=== PATIENT | male | born 1990 | race Two or more races ===

== ENCOUNTER → 2016-11-29 | Outpatient (CLI) | payer OTHER ==
[2016-11-29 08:15] LABS: CH 28.6; HDW 2.35; HGB 15.7 gm/dL (13.0-17.5); MCH 29.1 pg (25.0-35.0); MCHC 33.5 g/dL (31.0-37.0); MCV 87.1 fL (80.0-100.0); Mean Platelet Volume 6.4; RDW 13.2 % (11.5-15.5); WBC 9.3 k/uL (3.8-10.6)
[2016-11-29 10:59] LABS: ALT 37 U/L (21-72); AST 27 U/L (17-59); Alkaline Phosphatase 61 U/L (38-126); Anion Gap 11 mmol/L; Blood Urea Nitrogen 16 mg/dL (9-20); Calcium 9.4 mg/dL (8.4-10.2); Carbon Dioxide 28 mmol/L (22-30); Chloride 103 mmol/L (98-107); Cholesterol 173 mg/dL (<200); Glucose 88 mg/dL (74-99); HDL Cholesterol 38 mg/dL (40-60); Non-African American GFR(MDRD) >60 (>60 ml/min/1.73 sqM); Potassium 4.4 mmol/L (3.5-5.1); Sodium 142 mmol/L (137-145); Total Bilirubin 0.6 mg/dL (0.2-1.3); Total Protein 6.7 g/dL (6.3-8.2); Triglycerides 125 mg/dL (<150)
[2016-11-29 11:32] LABS: Estradiol 36 pg/mL (5-66)
== END | disposition home or self-care (01) ==
LOC: LABWHC1 07:40
PROVIDERS: ATTEND Family Medicine
DX: Z51.81 Encounter for therapeutic drug level monitoring (principal)
CPT/HCPCS: 36415; 80053; 80061; 82670; 84403; 85027

== ENCOUNTER 2017-11-23 14:13 | Emergency (ER) | payer OTHER ==
[2017-11-23] MEDS ORDERED: ACETAMINOPHEN TAB 500 MG TAB PO STA (15:39)
--- NOTE | 2017-11-23 16:18 | XR ---
EXAMINATION TYPE: XR chest 2V DATE OF EXAM: 11/23/2017 COMPARISON: None HISTORY: 27-year-old male with pain TECHNIQUE: PA and lateral views FINDINGS: The cardiomediastinal silhouette, aorta, and pulmonary vasculature are within normal limits. No conso lidation or pleural effusion. IMPRESSION: No focal infiltrate to suggest pneumonia.
--- NOTE | 2017-11-23 16:43 | ED ---
General Adult HPI - General Chief complaint: ENT Stated complaint: URI Time Seen by Provider: 11/23/17 15:58 Source: patient, RN notes reviewed Mode of arrival: ambulatory Limitations: no limitations - History of Present Illness Initial comments: 27-year-old male presents to the emergency department for a chief complaint of cough, congestion, and sore throat times one week. Patient denies having fevers at home but states he does not have a thermometer. Patient states he saw urgent care who told him to follow up if he did not get better. He saw them about 5 days ago. Patient has been taking [id number] cold and flu medicine which helps somewhat. Patient states his cough is dry and denies coughing up any mucus. Patient denies any shortness of breath or difficulty breathing. Patient denies smoking or asthma. Patient admits to left ear pain. Denies history of ear infections. Patient states he has congestion in for head and maxillary sinuses. Patient denies neck stiffness. Patient has no other complaints at this time including shortness of breath, chest pain, abdominal pain, nausea or vomiting, headache, or visual changes. - Related Data Previous Rx's Medication Instructions Recorded Albuterol Inhaler [Ventolin Hfa 1 - 2 puff INHALATION Q6HR PRN #1 11/23/17 Inhaler] inhaler Azithromycin [Zithromax Z-pack] 250 mg PO DIRECTED #6 tab 11/23/17 methylPREDNISolone Dose Pack 4 mg PO DIRECTED #21 package 11/23/17 [Medrol Dose Pack] Allergies Allergy/AdvReac Type Severity Reaction Status Date / Time Penicillins Allergy Anaphylaxis Verified 11/23/17 14:32 Sulfa (Sulfonamide Allergy Anaphylaxis Verified 11/23/17 14:32 Antibiotics) Review of Systems ROS Statement: Those systems with pertinent positive or pertinent negative responses have been documented in the HPI. ROS Other: All systems not noted in ROS Statement are negative. Past Medical History Past Medical History: No Reported History History of Any Multi-Drug Resistant Organisms: None Reported Past Surgical History: No Surgical Hx Reported Additional Past Surgical History / Comment(s): nasal surgery Past Psychological History: ADD/ADHD Smoking Status: Never smoker Past Alcohol Use History: None Reported Past Drug Use History: None Reported General Exam Limitations: no limitations General appearance: alert, in no apparent distress Head exam: Present: atraumatic, normocephalic, normal inspection Eye exam: Present: normal appearance. Absent: conjunctival injection ENT exam: Present: normal exam, normal oropharynx (Non-erythematous oropharynx. No Tonsillar exudates noted bilaterally. Uvula midline), mucous membranes moist, TM's normal bilaterally (Non-erythematous nonbulging tympanic membranes bilaterally), normal external ear exam, other (Patient appears to have moderate congestion. Patient has very mild tenderness over the frontal and maxillary sinuses. No redness or swelling in the face or frontal sinuses.) Neck exam: Present: normal inspection, full ROM. Absent: tenderness, meningismus, lymphadenopathy Respiratory exam: Present: wheezes (Mild wheezing noted and right lower lung and left upper lung). Absent: respiratory distress, rales, rhonchi, stridor, accessory muscle use, decreased breath sounds, prolonged expiratory Cardiovascular Exam: Present: regular rate, normal rhythm, normal heart sounds. Absent: systolic murmur, diastolic murmur, rubs, gallop, clicks Course Vital Signs 11/23/17 11/23/17 14:26 15:35 Temperature 99.7 F H Pulse Rate 107 H Respiratory 18 16 Rate Blood Pressure 132/75 O2 Sat by Pulse 99 Oximetry Medical Decision Making - Medical Decision Making 27-year-old male presents to the emergency department for a chief complaint of cough congestion and sore throat times one week. Patient describes a dry cough. Patient denies history of asthma. No shortness of breath or difficulty breathing. Patient is not a smoker. Patient was not aware of any fever at home. Patient has a low-grade temp of 99.7 in the emergency department. No Tylenol or Motrin today. On exam patient is in non-erythematous throat without tonsillar exudates. Uvula midline. There is mild wheezing noted in bilateral lungs. Strep and influenza was negative . Chest x-ray demonstrated no focal signs of pneumonia. Due to wheezing and symptoms being 1 week patient will be treated with azithromycin and steroid. He was given albuterol as well. He will take Motrin and Tylenol for fever. He will follow up with primary care provider. He will return to the emergency department if he has any worsening symptoms or shortness of breath or high fevers that cannot be reduced with Motrin or Tylenol. - Lab Data Lab Results 11/23/17 11/23/17 Range/Units 15:45 15:45 Influenza Type A RNA Not Detected (Not Detectd) Influenza Type B (PCR) Not Detected (Not Detectd) Group A Strep Rapid Negative (Negative) Disposition Clinical Impression: Upper respiratory infection Disposition: HOME SELF-CARE Condition: Good Instructions: Fever in Adults (ED), Upper Respiratory Infection (ED) Additional Instructions: Please take antibiotic and steroid as directed. Use inhaler as needed. Please take Motrin and Tylenol for fever. Please monitor for worsening symptoms and return if these occur. Follow-up with primary care in 1-2 days. Prescriptions: Albuterol Inhaler [Ventolin Hfa Inhaler] 1 - 2 puff INHALATION Q6HR PRN #1 inhaler PRN Reason: Shortness Of Breath Azithromycin [Zithromax Z-pack] 250 mg PO DIRECTED #6 tab methylPREDNISolone Dose Pack [Medrol Dose Pack] 4 mg PO DIRECTED #21 package Is patient prescribed a controlled substance at d/c from ED?: No Referrals: Bharat Huerta MD [STAFF PHYSICIAN] - 1-2 days Time of Disposition: 16:46
[2017-11-23 18:25] VITALS: BP 124/87; PULSE 87; RESP 18; TEMP 98
== END 2017-11-23 18:25 | disposition home or self-care (01) ==
LOC: EC 14:13
DX: J06.9 Acute upper respiratory infection, unspecified (principal); R06.2 Wheezing; Z88.0 Allergy status to penicillin; Z88.2 Allergy status to sulfonamides
CPT/HCPCS: 71046; 87081; 87430; 87502; 99283

== ENCOUNTER → 2018-07-23 | Outpatient (CLI) | payer OTHER | LOC: LABWHC1 14:33 | PROVIDERS: ATTEND Family Medicine | DX: Z53.9 Procedure and treatment not carried out, unspecified reason (principal) ==

== ENCOUNTER 2018-08-27 00:29 | Emergency (ER) | payer OTHER ==
[2018-08-27 00:36] VITALS: BP 146/73; PULSE 88; RESP 18; TEMP 98.7
[2018-08-27] MEDS ORDERED: DIPH,PERTUS(ACELL)TETVAC-LF 0.5 ML VIAL IM ONE (00:40)
[2018-08-27] MEDS ORDERED: TOPICAL SKIN ADHESIVE 1 EACH AMP TOPICAL ONE (00:45)
--- NOTE | 2018-08-27 01:04 | ED ---
Wound/Laceration HPI - General Source: patient Mode of arrival: ambulatory Limitations: no limitations <Yohana Dickson - Last Filed: 08/27/18 01:13> <Lorna Perez - Last Filed: 08/27/18 02:02> - General Chief Complaint: Wound/Laceration Stated Complaint: Finger Laceration Time Seen by Provider: 08/27/18 00:39 - History of Present Illness Initial Comments: 28-year-old male patient presents to the emergency department today for evaluation of laceration to the tip of the left fifth digit. Patient states he is unsure when his last tetanus vaccine was administered so he presented here for further evaluation. Patient states he believes he cut it on a sharp pain and approximately 2 hours ago. Patient states he was able to get the bleeding under control. Denies any other injuries. Denies any numbness or tingling to the finger. Denies any difficulty with range of motion. Patient denies any headache, neck pain, back pain, chest pain, shortness of breath, dizziness, weakness, abdominal pain, nausea, vomiting, or difficulties with bowel movements or urination. (Yohana Dickson) - Related Data Previous Rx's Medication Instructions Recorded Albuterol Inhaler [Ventolin Hfa 1 - 2 puff INHALATION Q6HR PRN #1 11/23/17 Inhaler] inhaler Azithromycin [Zithromax Z-pack] 250 mg PO DIRECTED #6 tab 11/23/17 methylPREDNISolone Dose Pack 4 mg PO DIRECTED #21 package 11/23/17 [Medrol Dose Pack] Allergies Allergy/AdvReac Type Severity Reaction Status Date / Time Penicillins Allergy Anaphylaxis Verified 08/27/18 00:36 Sulfa (Sulfonamide Allergy Anaphylaxis Verified 08/27/18 00:36 Antibiotics) Review of Systems ROS Other: All systems not noted in ROS Statement are negative. <Yohana Dickson - Last Filed: 08/27/18 01:13> ROS Other: All systems not noted in ROS Statement are negative. <Lorna Perez - Last Filed: 08/27/18 02:02> ROS Statement: Those systems with pertinent positive or pertinent negative responses have been documented in the HPI. Past Medical History Past Medical History: No Reported History History of Any Multi-Drug Resistant Organisms: None Reported Past Surgical History: No Surgical Hx Reported Additional Past Surgical History / Comment(s): nasal surgery, wisdom teeth removed, double mastectomy Past Psychological History: ADD/ADHD, Anxiety, Depression Smoking Status: Never smoker Past Alcohol Use History: Rare Past Drug Use History: Marijuana <Yohana Dickson - Last Filed: 08/27/18 01:13> General Exam Limitations: no limitations General appearance: alert, in no apparent distress, other (Physical well- developed, well-nourished adult male patient in no acute distress. Vital signs upon presentation are temperature 98.7F, pulse 88, respirations 18, blood pressure 146/73, pulse ox 97% on room air.) Respiratory exam: Present: normal lung sounds bilaterally. Absent: respiratory distress, wheezes, rales, rhonchi, stridor Cardiovascular Exam: Present: regular rate, normal rhythm, normal heart sounds. Absent: systolic murmur, diastolic murmur, rubs, gallop, clicks Extremities exam: Present: full ROM, normal capillary refill, other (1 cm flap laceration noted to the distal tip of the left fifth digit. No current bleeding. Skin is otherwise pink, warm, and dry. Cap refills less than 3 seconds. Radial pulses 2+ and equal bilaterally.). Absent: normal inspection, tenderness, pedal edema, joint swelling, calf tenderness Neurological exam: Present: alert, oriented X3, CN II-XII intact Psychiatric exam: Present: normal affect, normal mood Skin exam: Present: warm, dry, intact, normal color. Absent: rash <Yohana Dickson M - Last Filed: 08/27/18 01:13> Course Vital Signs 08/27/18 00:32 Temperature 98.7 F Pulse Rate 88 Respiratory 18 Rate Blood Pressure 146/73 O2 Sat by Pulse 97 Oximetry Procedures - Laceration Laceration #1 Indication: laceration Site: hand (Left fifth finger) Size (cm): 1 Description: flap Depth: simple, single layer Type of Sutures: other (exofin) Patient Tolerated Procedure: well, no complications <Yohana Dickson M - Last Filed: 08/27/18 01:13> Medical Decision Making <Yohana Dickson M - Last Filed: 08/27/18 01:13> <Lorna Perez - Last Filed: 08/27/18 02:02> - Medical Decision Making 28-year-old male patient presented to the emergency department today for evaluation of laceration to the left fifth digit. Physical examination did reveal a 1 cm flap-like laceration to the finger. No current bleeding. Did repair her laceration with exofin skin adhesive. Patient tolerated this well. He was educated regarding signs or symptoms of infection. He is instructed to follow-up with his primary care physician for recheck in 1-2 days. Return parameters discussed in detail. He verbalizes understanding and agrees this plan. (Yohana Dickson) I was available for consultation in the emergency department. The history and physical exam were done by the Midlevel Provider. Medical decision making was done by the Midlevel Provider. The Midlevel Provider did not contact me for this patient's care. I was not directly involved in this patient's care. (Lorna Perez) Disposition Is patient prescribed a controlled substance at d/c from ED?: No Time of Disposition: 01:04 <Yohana Dickson - Last Filed: 08/27/18 01:13> <Lorna Perez - Last Filed: 08/27/18 02:02> Clinical Impression: Finger laceration Disposition: HOME SELF-CARE Condition: Good Instructions (If sedation given, give patient instructions): Laceration (ED), Skin Adhesive Care (ED) Additional Instructions: Keep area clean and dry. Do not pick or pull at glue. Monitor for signs of infection including, but not limited to redness, swelling, drainage of pus, fever, or chills. Follow-up with your primary care physician for recheck in 1-2 days. Return to the emergency department immediately for any new, worsening, or concerning symptoms. Referrals: Mary Vásquez MD [Primary Care Provider] - 1-2 days
== END 2018-08-27 01:11 | disposition home or self-care (01) ==
LOC: EC 00:29
DX: S61.217A Laceration without foreign body of left little finger without damage to nail, initial encounter (principal); Z79.899 Other long term (current) drug therapy; Z88.0 Allergy status to penicillin; Z88.2 Allergy status to sulfonamides; Z23 Encounter for immunization; W26.9XXA Contact with unspecified sharp object(s), initial encounter
CPT/HCPCS: 12001; 90471; 90715; 99282

== ENCOUNTER 2018-09-30 21:59 | Emergency (ER) | payer OTHER ==
[2018-09-30 22:03] VITALS: BP 139/78; PULSE 106; RESP 18; TEMP 98.6
[2018-09-30] MEDS ORDERED: LIDOCAINE 1% INJ 10MG/ML (20 ML MDV) SQ ONE (22:24)
--- NOTE | 2018-09-30 22:54 | XR ---
EXAM: XR Right Finger(s), 2 or More Views CLINICAL HISTORY: ITS.REASON XR Reason: lac TECHNIQUE: Frontal, lateral and oblique views of finger(s) of the right hand. COMPARISON: None FINDINGS: Bones/joints: No acute fracture or dislocation identified. Joint space is maintained. No bony lesion. Soft tissues: Laceration of the distal right third digit. No radiopaque foreign body identified. IMPRESSION: No displaced fracture identified. Laceration of the distal right third digit. No radiopaque foreign body identified.
--- NOTE | 2018-09-30 23:30 | ED ---
General Adult HPI - General Chief complaint: Wound/Laceration Stated complaint: Finger laceration Time Seen by Provider: 09/30/18 22:08 Source: patient, RN notes reviewed Mode of arrival: ambulatory Limitations: no limitations - History of Present Illness Initial comments: 28-year-old male presents to the emergency department for a chief complaint of left third finger laceration. Patient states he was taking up the trash when he can cut his finger. States he does not have any other injuries. States his tetanus is updated a few weeks ago. Denies any difficulty moving the finger.Patient has no other complaints at this time including shortness of breath, chest pain, abdominal pain, nausea or vomiting, headache, or visual changes. - Related Data Previous Rx's Medication Instructions Recorded Albuterol Inhaler [Ventolin Hfa 1 - 2 puff INHALATION Q6HR PRN #1 11/23/17 Inhaler] inhaler Azithromycin [Zithromax Z-pack] 250 mg PO DIRECTED #6 tab 11/23/17 methylPREDNISolone Dose Pack 4 mg PO DIRECTED #21 package 11/23/17 [Medrol Dose Pack] Allergies Allergy/AdvReac Type Severity Reaction Status Date / Time Penicillins Allergy Anaphylaxis Verified 09/30/18 22:03 Sulfa (Sulfonamide Allergy Anaphylaxis Verified 09/30/18 22:03 Antibiotics) Review of Systems ROS Statement: Those systems with pertinent positive or pertinent negative responses have been documented in the HPI. ROS Other: All systems not noted in ROS Statement are negative. Past Medical History Past Medical History: No Reported History History of Any Multi-Drug Resistant Organisms: None Reported Past Surgical History: No Surgical Hx Reported Additional Past Surgical History / Comment(s): nasal surgery, wisdom teeth removed, double mastectomy Past Psychological History: ADD/ADHD, Anxiety, Depression Smoking Status: Never smoker Past Alcohol Use History: Rare Past Drug Use History: Marijuana General Exam Limitations: no limitations General appearance: alert, in no apparent distress Head exam: Present: atraumatic Eye exam: Present: normal appearance, PERRL, EOMI. Absent: scleral icterus, conjunctival injection, periorbital swelling ENT exam: Present: normal exam, mucous membranes moist Neck exam: Present: normal inspection, full ROM. Absent: tenderness, meningismus, lymphadenopathy Respiratory exam: Present: normal lung sounds bilaterally. Absent: respiratory distress, wheezes, rales, rhonchi, stridor Cardiovascular Exam: Present: regular rate, normal rhythm, normal heart sounds. Absent: systolic murmur, diastolic murmur, rubs, gallop, clicks Extremities exam: Present: full ROM (Full range motion of the left third digit including DIP, PIP, and MCP joint), tenderness (Tenderness noted to the distal phalanx of the left third digit), normal capillary refill (Capillary refill less than 2 seconds, DP pulse 2+ in the left hand including the third digit), other (Patient is a 3 cm laceration of the distal phalanx of the left third digit. No deep structure injuries. No evidence of foreign bodies.) Neurological exam: Present: alert, oriented X3, CN II-XII intact Psychiatric exam: Present: normal affect, normal mood Course Vital Signs 09/30/18 22:00 Temperature 98.6 F Pulse Rate 106 H Respiratory 18 Rate Blood Pressure 139/78 O2 Sat by Pulse 98 Oximetry Procedures - Laceration Laceration #1 Consent Obtained: verbal consent Indication: laceration Site: hand Size (cm): 3 Description: linear, flap Depth: simple, single layer Anesthetic Used: lidocaine 1% Anesthesia Technique: local infiltration Amount (mls): 2 Pre-repair: wound explored, irrigated extensively, deep structures intact Type of Sutures: nylon Size of Sutures: 5-0 Number of Sutures: 5 Technique: simple, interrupted Patient Tolerated Procedure: well, no complications Medical Decision Making - Medical Decision Making 28-year-old male presents to the emergency department for a laceration of the left finger. Full range of motion noted. No foreign bodies evident. X-ray negative for foreign body. Wound was cleaned thoroughly with saline pressure irrigation. It was then sutured with 5 simple interrupted sutures. Discussed return precautions including those for infection. Discussed follow-up with primary care in 1-2 days. Disposition Clinical Impression: Laceration Disposition: HOME SELF-CARE Condition: Good Instructions (If sedation given, give patient instructions): Care For Your Stitches (ED), Laceration (ED) Additional Instructions: Please keep the area clean. Monitor for signs of infection such as spreading or streaking redness, drainage, fever, or pain with bending the finger and return if this occurs. Follow-up with primary care in 1-2 days for wound recheck. Return here to the emergency department in 7-10 days to have sutures removed. Is patient prescribed a controlled substance at d/c from ED?: No Referrals: Mayr Vásquez MD [Primary Care Provider] - 1-2 days Time of Disposition: 23:29
== END 2018-09-30 23:34 | disposition home or self-care (01) ==
LOC: EC 21:59
DX: S61.213A Laceration without foreign body of left middle finger without damage to nail, initial encounter (principal); Z88.0 Allergy status to penicillin; Z88.2 Allergy status to sulfonamides; W45.8XXA Other foreign body or object entering through skin, initial encounter; Y93.89 Activity, other specified
CPT/HCPCS: 73140; 99283; 12002; J2001

== ENCOUNTER 2018-12-18 15:39 | Emergency (ER) | payer OTHER ==
[2018-12-18 16:19] VITALS: BP 125/76; PULSE 106; RESP 18; TEMP 98.2
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
[2018-12-18] MEDS ORDERED: MUPIROCIN 2% OINT 22 GM TUBE TOPICAL ONE (17:00)
== END 2018-12-18 17:03 | disposition home or self-care (01) ==
LOC: EC 15:39
DX: T22.212A Burn of second degree of left forearm, initial encounter (principal); T23.232A Burn of second degree of multiple left fingers (nail), not including thumb, initial encounter; T31.0 Burns involving less than 10% of body surface; G47.30 Sleep apnea, unspecified; Z88.0 Allergy status to penicillin; Z88.2 Allergy status to sulfonamides; Z79.899 Other long term (current) drug therapy; Z91.048 Other nonmedicinal substance allergy status; Z99.89 Dependence on other enabling machines and devices; X10.2XXA Contact with fats and cooking oils, initial encounter; Y93.G3 Activity, cooking and baking; Y92.000 Kitchen of unspecified non-institutional (private) residence as the place of occurrence of the external cause
CPT/HCPCS: 16000; 99283

== ENCOUNTER 2019-02-07 13:19 | Emergency (ER) | payer OTHER ==
[2019-02-07 13:24] VITALS: RESP 18
[2019-02-07] MEDS ORDERED: diphenhydrAMINE 50 MG/ML 1 ML VIAL IVP STA (13:56)
[2019-02-07] MEDS ORDERED: SODIUM CHLORIDE 0.9% 2,000 ML IV ONE (13:56)
[2019-02-07] MEDS ORDERED: KETOROLAC 30 MG/ML 1 ML VIAL IVP STA (13:56)
[2019-02-07] MEDS ORDERED: METOCLOPRAMIDE 5 MG/ML 2 ML VIAL IVP STA (13:56)
[2019-02-07] MEDS ORDERED: ACETAMINOPHEN TAB 325 MG TAB PO STA (14:22)
--- NOTE | 2019-02-07 14:22 | ED ---
Fever HPI - General Chief Complaint: Fever Stated Complaint: Nausea sent by [place] Time Seen by Provider: 02/07/19 13:29 Source: patient, RN notes reviewed Mode of arrival: ambulatory Limitations: no limitations - History of Present Illness Initial Comments: 28-year-old male presents emergency Department chief complaint of fever, nausea. Patient states he has not felt well over the last couple days. Patient has been taking day and night cold medicines but states it has not been helping. Patient states she's had persistent nausea as sinus headache. He denies any neck pain or neck stiffness. Patient had minimal cough no recent sore throat. Patient states she's been taken Zofran with no relief. Patient states symptoms are better if he just lays still. Patient denies any close sick contacts. Patient states that he was seen at [facility] today and sent here for further workup they did an influenza test which was negative. Patient does not take any regular medications denies any dysuria hematuria no diarrhea no constipation. - Related Data Home Medications Medication Instructions Recorded Confirmed Fexofenadine HCl [Eladia Allergy] 180 mg PO DAILY 12/18/18 02/07/19 Lipase/Protease/Amylase [Creon Dr 12,000 units PO AC-TID 12/18/18 02/07/19 12,000 Units Capsule] Mometasone Furoate [Nasonex Nasal 1 - 2 spray EA NOSTRIL DAILY PRN 12/18/18 02/07/19 [place]] Montelukast [Singulair] 10 mg PO HS PRN 12/18/18 02/07/19 Testosterone Cypionate 120 mg IM MO 02/07/19 02/07/19 [Depo-Testosterone] Previous Rx's Medication Instructions Recorded Ibuprofen [Motrin] 600 mg PO Q8HR PRN #30 tab 02/07/19 Metoclopramide [Reglan] 10 mg PO TID PRN #15 tab 02/07/19 Allergies Allergy/AdvReac Type Severity Reaction Status Date / Time Penicillins Allergy Anaphylaxis Verified 02/07/19 13:30 Sulfa (Sulfonamide Allergy Anaphylaxis Verified 02/07/19 13:30 Antibiotics) Review of Systems ROS Statement: Those systems with pertinent positive or pertinent negative responses have been documented in the HPI. ROS Other: All systems not noted in ROS Statement are negative. Past Medical History Past Medical History: Sleep Apnea/CPAP/BIPAP Additional Past Medical History / Comment(s): seasonal allergies, aspergers, sleep apnea History of Any Multi-Drug Resistant Organisms: None Reported Past Surgical History: No Surgical Hx Reported Additional Past Surgical History / Comment(s): nasal surgery, wisdom teeth re moved, double mastectomy Past Psychological History: ADD/ADHD, Anxiety, Depression Smoking Status: Current some day smoker Past Alcohol Use History: Rare Past Drug Use History: Marijuana General Exam Limitations: no limitations General appearance: alert, in no apparent distress Head exam: Present: atraumatic, normocephalic, normal inspection Eye exam: Present: normal appearance, PERRL, EOMI. Absent: scleral icterus, conjunctival injection, periorbital swelling ENT exam: Present: normal exam, normal oropharynx, mucous membranes moist, TM's normal bilaterally, normal external ear exam Neck exam: Present: normal inspection, full ROM. Absent: tenderness, meningismus, lymphadenopathy Respiratory exam: Present: normal lung sounds bilaterally. Absent: respiratory distress, wheezes, rales, rhonchi, stridor Cardiovascular Exam: Present: normal rhythm, tachycardia, normal heart sounds. Absent: systolic murmur, diastolic murmur, rubs, gallop, clicks GI/Abdominal exam: Present: soft, normal bowel sounds. Absent: distended, tenderness, guarding, rebound, rigid Neurological exam: Present: alert, oriented X3, CN II-XII intact Skin exam: Present: warm, dry, intact, normal color. Absent: rash Course Vital Signs 02/07/19 02/07/19 13:22 15:06 Temperature 102.0 F H 101.8 F H Pulse Rate 101 H 95 Respiratory 18 18 Rate Blood Pressure 122/83 121/77 O2 Sat by Pulse 100 97 Oximetry Medical Decision Making - Medical Decision Making 28-year-old male presented from for fever, nausea. Patient other specific complaints he has no neck pain no nuchal rigidity. Patient has no abdominal pain. Labs reviewed which shows evidence of leukopenia, there was a period. This most likely is viral nature. We discussed that he has to strict fever control Tylenol and Motrin. Patient feels improved after Toradol, Reglan Benadryl. - Lab Data Result diagrams: 02/07/19 14:49 02/07/19 14:49 Lab Results 09/07/19 09/07/19 09/07/19 Range/Units 14:49 14:49 14:49 WBC 2.7 L (3.8-10.6) k/uL RBC 5.73 (4.30-5.90) m/uL Hgb 16.5 (13.0-17.5) gm/dL Hct 49.0 (39.0-53.0) % MCV 85.5 (80.0-100.0) fL MCH 28.8 (25.0-35.0) pg MCHC 33.7 (31.0-37.0) g/dL RDW 16.5 H (11.5-15.5) % Plt Count 104 L (150-450) k/uL Neutrophils % (Manual) 60 % Band Neutrophils % 3 % Lymphocytes % (Manual) 27 % Monocytes % (Manual) 9 % Eosinophils % (Manual) 1 % Neutrophils # (Manual) 1.70 (1.3-7.7) k/uL Lymphocytes # (Manual) 0.73 L (1.0-4.8) k/uL Monocytes # (Manual) 0.24 (0-1.0) k/uL Eosinophils # (Manual) 0.03 (0-0.7) k/uL Nucleated RBCs 0 (0-0) /100 WBC Manual Slide Review Performed Anisocytosis Slight Sodium 138 (137-145) mmol/L Potassium 4.4 (3.5-5.1) mmol/L Chloride 100 (98-107) mmol/L Carbon Dioxide 28 (22-30) mmol/L Anion Gap 10 mmol/L BUN 14 (9-20) mg/dL Creatinine 1.05 (0.66-1.25) mg/dL Est GFR (CKD-EPI)AfAm >90 (>60 ml/min/1.73 sqM) Est GFR (CKD-EPI)NonAf >90 (>60 ml/min/1.73 sqM) Glucose 99 (74-99) mg/dL Plasma Lactic Acid Moises 0.9 (0.7-2.0) mmol/L Calcium 8.9 (8.4-10.2) mg/dL Total Bilirubin 0.5 (0.2-1.3) mg/dL AST 58 (17-59) U/L ALT 80 H (21-72) U/L Alkaline Phosphatase 65 (38-126) U/L Total Protein 7.2 (6.3-8.2) g/dL Albumin 4.3 (3.5-5.0) g/dL Lipase 419 H (23-300) U/L Urine Color Urine Appearance (Clear) Urine pH (5.0-8.0) Ur Specific [place] (1.001-1.035) Urine Protein (Negative) Urine Glucose (UA) (Negative) Urine Ketones (Negative) Urine Blood (Negative) Urine Nitrite (Negative) Urine Bilirubin (Negative) Urine Urobilinogen (<2.0) mg/dL Ur Leukocyte Esterase (Negative) Heterophile Antibody (Negative) 02/07/19 02/07/19 Range/Units 14:49 14:49 WBC (3.8-10.6) k/uL RBC (4.30-5.90) m/uL Hgb (13.0-17.5) gm/dL Hct (39.0-53.0) % MCV (80.0-100.0) fL MCH (25.0-35.0) pg MCHC (31.0-37.0) g/dL RDW (11.5-15.5) % Plt Count (150-450) k/uL Neutrophils % (Manual) % Band Neutrophils % % Lymphocytes % (Manual) % Monocytes % (Manual) % Eosinophils % (Manual) % Neutrophils # (Manual) (1.3-7.7) k/uL Lymphocytes # (Manual) (1.0-4.8) k/uL Monocytes # (Manual) (0-1.0) k/uL Eosinophils # (Manual) (0-0.7) k/uL Nucleated RBCs (0-0) /100 WBC Manual Slide Review Anisocytosis Sodium (137-145) mmol/L Potassium (3.5-5.1) mmol/L Chloride (98-107) mmol/L Carbon Dioxide (22-30) mmol/L Anion Gap mmol/L BUN (9-20) mg/dL Creatinine (0.66-1.25) mg/dL Est GFR (CKD-EPI)AfAm (>60 ml/min/1.73 sqM) Est GFR (CKD-EPI)NonAf (>60 ml/min/1.73 sqM) Glucose (74-99) mg/dL Plasma Lactic Acid Moises (0.7-2.0) mmol/L Calcium (8.4-10.2) mg/dL Total Bilirubin (0.2-1.3) mg/dL AST (17-59) U/L ALT (21-72) U/L Alkaline Phosphatase (38-126) U/L Total Protein (6.3-8.2) g/dL Albumin (3.5-5.0) g/dL Lipase (23-300) U/L Urine Color Yellow Urine Appearance Clear (Clear) Urine pH 6.0 (5.0-8.0) Ur Specific [place] 1.022 (1.001-1.035) Urine Protein Trace H (Negative) Urine Glucose (UA) Negative (Negative) Urine Ketones 1+ H (Negative) Urine Blood Negative (Negative) Urine Nitrite Negative (Negative) Urine Bilirubin Negative (Negative) Urine Urobilinogen 2.0 (<2.0) mg/dL Ur Leukocyte Esterase Negative (Negative) Heterophile Antibody Negative (Negative) Disposition Clinical Impression: Viral infection, Nausea Disposition: HOME SELF-CARE Condition: Stable Instructions (If sedation given, give patient instructions): Fever in Adults (ED), Viral Syndrome (ED) Additional Instructions: Please return to the Emergency Department if symptoms worsen or any other concerns. Prescriptions: Ibuprofen [Motrin] 600 mg PO Q8HR PRN #30 tab PRN Reason: Pain Metoclopramide [Reglan] 10 mg PO TID PRN #15 tab PRN Reason: GERD Is patient prescribed a controlled substance at d/c from ED?: No Referrals: Mary Vásquez MD [Primary Care Provider] - 1-2 days Time of Disposition: 15:56
--- NOTE | 2019-02-07 15:05 | XR ---
EXAMINATION TYPE: XR chest 2V DATE OF EXAM: 02/07/2019 COMPARISON: 11/23/2017 HISTORY: Nausea and fever TECHNIQUE: Frontal and lateral views of the chest are obtained. FINDINGS: Heart and mediastinum are normal. Lungs are clear of infiltrate. There is no pleural effus ion. There is irregular density over the left lower lung field is probably nipple shadow. IMPRESSION: No active cardiopulmonary disease. Normal heart. No change.
[2019-02-07 15:07] LABS: Appearance,Urine Clear (Clear); Bilirubin,Urine Negative (Negative); Blood,Urine Negative (Negative); Color,Urine Yellow; Glucose,Urine (UA) Negative (Negative); Ketones,Urine 1+ (Negative); Leukocyte Esterase,Urine Negative (Negative); Nitrite,Urine Negative (Negative); Protein,Urine Trace (Negative); Specific Gravity,Urine 1.022 (1.001-1.035)
[2019-02-07 15:16] LABS: Anisocytosis Slight; HGB 16.5 gm/dL (13.0-17.5); MCH 28.8 pg (25.0-35.0); MCHC 33.7 g/dL (31.0-37.0); MCV 85.5 fL (80.0-100.0); Mean Platelet Volume 7.2; Platelet Count 104 k/uL (150-450); RBC 5.73 m/uL (4.30-5.90); RDW 16.5 % (11.5-15.5); WBC 2.7 k/uL (3.8-10.6)
[2019-02-07 15:19] LABS: ALT 80 U/L (21-72); AST 58 U/L (17-59); African American GFR (CKD) >90 (>60 ml/min/1.73 sqM); Albumin 4.3 g/dL (3.5-5.0); Alkaline Phosphatase 65 U/L (38-126); Anion Gap 10 mmol/L; Blood Urea Nitrogen 14 mg/dL (9-20); Calcium 8.9 mg/dL (8.4-10.2); Carbon Dioxide 28 mmol/L (22-30); Chloride 100 mmol/L (98-107); Glucose 99 mg/dL (74-99); Potassium 4.4 mmol/L (3.5-5.1); Sodium 138 mmol/L (137-145); Total Bilirubin 0.5 mg/dL (0.2-1.3); Total Protein 7.2 g/dL (6.3-8.2)
[2019-02-07 15:30] LABS: Band Neutrophils % 3 %; Eosinophils # (M) 0.03 k/uL (0-0.7); Lymphocytes # (M) 0.73 k/uL (1.0-4.8); Monocytes # (M) 0.24 k/uL (0-1.0); Neutrophils % (M) 60 %; Nucleated Red Blood Cells 0 /100 WBC (0-0); Total Cells Counted 100
[2019-02-07 16:10] VITALS: BP 109/67; PULSE 93; TEMP 100.2
== END 2019-02-07 16:07 | disposition home or self-care (01) ==
LOC: EC 13:19
DX: B34.9 Viral infection, unspecified (principal); R00.0 Tachycardia, unspecified; G47.30 Sleep apnea, unspecified; F17.200 Nicotine dependence, unspecified, uncomplicated; Z88.0 Allergy status to penicillin; Z88.2 Allergy status to sulfonamides; Z91.048 Other nonmedicinal substance allergy status; Z79.890 Hormone replacement therapy; Z79.899 Other long term (current) drug therapy; Z99.89 Dependence on other enabling machines and devices
CPT/HCPCS: 36415; 80053; 83605; 83690; 85025; 86308; 81003; 87040; 71046; 99284; 96374; 96375 ×2; 96361; J1200; J2765; J1885

== ENCOUNTER → 2019-04-02 | Outpatient (CLI) | payer OTHER ==
[2019-04-02 15:30] LABS: Basophils # (A) 0.1 k/uL (0-0.2); Basophils % (A) 1 %; Eosinophils # (A) 0.1 k/uL (0-0.7); Eosinophils % (A) 2 %; HCT 49.5 % (39.0-53.0); HGB 16.4 gm/dL (13.0-17.5); Lymphocytes % (A) 22 %; MCH 29.3 pg (25.0-35.0); MCHC 33.2 g/dL (31.0-37.0); MCV 88.2 fL (80.0-100.0); Mean Platelet Volume 5.6; Monocytes # (A) 0.8 k/uL (0-1.0); Monocytes % (A) 9 %; Neutrophils # (A) 5.6 k/uL (1.3-7.7); Neutrophils % (A) 64 %; RBC 5.61 m/uL (4.30-5.90); RDW 13.6 % (11.5-15.5); WBC 8.9 k/uL (3.8-10.6)
[2019-04-02 15:35] LABS: Platelet Count 315 k/uL (150-450)
[2019-04-02 20:31] LABS: Anti-DNA, DS unit <1.0 IU/mL; Anti-Smith Ab Interp NEGATIVE (NEGATIVE); Cyclic Citrull Pep IgG Unit 0.5 U/mL; Cyclic Citrullinated Pep IgG NEGATIVE (NEGATIVE); DNA Double-Stranded NEGATIVE (NEGATIVE); JO-1 IgG Antibody <0.2 AI; Scleroderma SC-70 Ab <0.2 AI
[2019-04-03 07:19] LABS: African American GFR (CKD) 105.3 (60.0-200.0); Albumin 4.9 g/dL (3.80-4.90); Albumin/Globulin Ratio 2.58 (1.60-3.17); Anion Gap 10.8 mmol/L (4.00-12.00); BUN/Creat Ratio 14.55 Ratio (12.00-20.00); Calcium 9.8 mg/dL (8.7-10.3); Carbon Dioxide 28.2 mmol/L (21.6-31.8); Globulin 1.9 g/dL (1.6-3.3); Non-African American GFR(CKD) 90.9 (60.0-200.0); Potassium 4.1 mmol/L (3.5-5.5); Total Bilirubin 0.5 mg/dL (0.3-1.2); Total Protein 6.8 g/dL (6.2-8.2)
[2019-04-03 07:27] LABS: Estradiol 37.8 pg/mL
== END | disposition home or self-care (01) ==
LOC: LABWHC1 14:58
PROVIDERS: ATTEND Nurse Practitioner Family
DX: M25.50 Pain in unspecified joint (principal); F64.9 Gender identity disorder, unspecified; Z51.81 Encounter for therapeutic drug level monitoring
CPT/HCPCS: 36415; 80053; 82670; 83516; 84403; 85025; 86038; 86200; 86225; 86235

== ENCOUNTER → 2019-06-27 | Outpatient (CLI) | payer OTHER ==
[2019-06-27 16:49] LABS: Chol/HDL Ratio 4.58; LDL Cholesterol,Calculated 127.4 mg/dL (0.0-131.0); VLDL Calculation 26.6 mg/dL (5.00-40.00)
[2019-06-27 20:21] LABS: Hemoglobin A1C 5.4 % (4.0-6.0)
== END | disposition home or self-care (01) ==
LOC: LABWHC1 11:20
PROVIDERS: ATTEND Family Medicine
DX: F41.9 Anxiety disorder, unspecified (principal); R53.83 Other fatigue; M54.12 Radiculopathy, cervical region; K86.89 Other specified diseases of pancreas
CPT/HCPCS: 36415; 80061; 82390; 82525; 82705; 83036; 83690; 84443

== ENCOUNTER → 2020-12-07 | Outpatient (CLI) | payer OTHER ==
--- NOTE | 2020-12-07 18:11 | CONS ---
CONSULTATION DATE OF SERVICE: 12/07/2020. 30-year-old man who has been evaluated in [facility] for obstructive sleep apnea- hypopnea syndrome. HISTORY OF PRESENT ILLNESS/ SLEEP WAKE EVALUATION: The patient has been diagnosed with obstructive sleep apnea in 2016. I reviewed his record. Apnea-hypopnea index was documented at 11.2 times per hour, and REM sleep 21.3 times per hour. The patient was recommended treatment with CPAP with a pressure of 8 cm of water. The patient stopped using machine more than one year ago. He was not able to tolerate pressure and did not like it. SLEEP SCHEDULE: His sleep schedule presently from 12 or 2:00 a.m. until 8 or 10 a.m. FALLING ASLEEP: He does have problems with falling asleep, although no TV in bedroom. DURING SLEEP: He sleeps on the side position. He wakes up from sleep 1 time with one episode of nocturia. No history of hypnagogic hallucinations, sleep paralysis or cataplexy. Keno Sleepiness Scale today increased to 12. PAST MEDICAL HISTORY: Positive for asthma, ADHD, sinuses problems, depression and anxiety, autism. Gender transition. PAST SURGICAL HISTORY: Mastectomy. FAMILY HISTORY: Arthritis, asthma, sinus problems, sleep apnea, diabetes, mental illness. MEDICATIONS: Fluticasone 50 mcg as needed, Creon 12,000, Eladia 180 mg once daily, montelukast 10 mg as needed, Adderall 10 mg twice a day, Testosterone 200 mg once a week, albuterol 90 mcg as needed. Social history I do not write social history in information. REVIEW OF SYSTEMS: Snoring, awakenings from sleep. PHYSICAL EXAMINATION: GENERAL: A man without distress. VITAL SIGNS: BP 131/80, HR around 100, RR 15, height 5 feet 3-1/2 inches, weight 177 pounds. Body mass index 30.8, temperature 99, oxygen saturation at room air 100%. HEENT: PERRLA, EOMI. Evaluation of oropharynx low position of soft palate. Mallampati 3. NECK: 16-1/2 inches in circumference. Neck supple, no JVD. Thyroid is not palpable. LUNGS: Clear to percussion and to auscultation. Good air exchange. No wheezing or rhonchi. HEART: S1, S2 regular. No murmurs, gallops, or rubs. ABDOMEN: Soft and nontender. Bowel sounds are present. No organomegaly appreciated. EXTREMITIES: No clubbing or cyanosis. 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 Cranial nerves 2 to 7 intact. There is no fasciculation or atrophy. noted. No focal deficits observed. IMPRESSION: 1. History of obstructive sleep apnea-hypopnea syndrome documented 2015 in mild range. The patient has had difficulties to tolerate CPAP. Did not use CPAP for more than one year. Low position of soft palate, Mallampati 3. 2. Asthma. 3. Attention-deficit/hyperactivity disorder. 4. History of depression. 5. History of anxiety. 6. History of autism. 7. Status post mastectomy for gender transition. 8. Status post rhinoplasty. PLAN: 1. Polysomnogram for reevaluation of patient breathing during sleep at the present time. The previous sleep study showed mild sleep apnea. Patient did not use machine for more than one year. 2. Sleep hygiene with regular time in bed for 7-1/2 to 8 hours. 3. No driving if feeling sleepiness. 4. Following plan after reviewing results of sleep study. Thank you very much for allowing me to participate in management of your patient. Sincerely, Case Velazquez MD, PhD, FAASM Diplomat of [employer] [facility] [place] MMODL / IJN: [id number] /
== END ==
LOC: SLEEP 14:29
PROVIDERS: ATTEND Internal Medicine
DX: G47.33 Obstructive sleep apnea (adult) (pediatric) (principal); J45.909 Unspecified asthma, uncomplicated; F90.9 Attention-deficit hyperactivity disorder, unspecified type; F41.9 Anxiety disorder, unspecified; F32.9 Major depressive disorder, single episode, unspecified; F84.0 Autistic disorder; Z87.890 Personal history of sex reassignment; Z90.13 Acquired absence of bilateral breasts and nipples; Z98.890 Other specified postprocedural states
CPT/HCPCS: 99211

== ENCOUNTER → 2021-04-18 | Outpatient (CLI) | payer OTHER | END | disposition home or self-care (01) | LOC: LABWHC1 05:46 | PROVIDERS: ATTEND Emergency Medicine | DX: Z20.822 Contact with and (suspected) exposure to COVID-19 (principal) | CPT/HCPCS: 87635 ==

== ENCOUNTER → 2021-04-19 | Outpatient (CLI) | payer OTHER | END | disposition home or self-care (01) | LOC: LABWHC1 06:10 | PROVIDERS: ATTEND Emergency Medicine | DX: Z20.822 Contact with and (suspected) exposure to COVID-19 (principal) | CPT/HCPCS: 87635 ==

== ENCOUNTER → 2021-06-15 | Outpatient (CLI) | payer OTHER | END | disposition home or self-care (01) | LOC: LABWHC1 13:01 | PROVIDERS: ATTEND Emergency Medicine | DX: Z20.822 Contact with and (suspected) exposure to COVID-19 (principal) | CPT/HCPCS: 87635 ==

== ENCOUNTER 2022-02-28 09:05 | Emergency (ER) | payer OTHER, MEDICAID ==
[2022-02-28 09:30] VITALS: RESP 16; TEMP 98.1
--- NOTE | 2022-02-28 10:39 | ED ---
General Adult HPI - General Chief complaint: Needlestick/Exposure Stated complaint: [facility], needlestick exposure Time Seen by Provider: 02/28/22 09:39 Source: patient, RN notes reviewed Mode of arrival: ambulatory Limitations: no limitations - History of Present Illness Initial comments: 31-year-old male presents emergency Department chief complaint of possible needlestick. 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 Patient states that has not been cleaned out in a while. Patient denies any significant bleeding his tetanus is up-to-date. Patient denies any other associated complaints. - Related Data Home Medications Medication Instructions Recorded Confirmed Fexofenadine HCl [Eladia Allergy] 180 mg PO DAILY 12/18/18 02/07/19 Lipase/Protease/Amylase [Creon Dr 12,000 units PO AC-TID 12/18/18 02/07/19 12,000 Units Capsule] Mometasone Furoate [Nasonex Nasal 1 - 2 spray EA NOSTRIL DAILY PRN 12/18/18 02/07/19 [place]] Montelukast [Singulair] 10 mg PO HS PRN 12/18/18 02/07/19 Testosterone Cypionate 120 mg IM MO 02/07/19 02/07/19 [Depo-Testosterone] Previous Rx's Medication Instructions Recorded Ibuprofen [Motrin] 600 mg PO Q8HR PRN #30 tab 02/07/19 Metoclopramide [Reglan] 10 mg PO TID PRN #15 tab 02/07/19 Allergies Allergy/AdvReac Type Severity Reaction Status Date / Time Penicillins Allergy Anaphylaxis Verified 02/28/22 09:30 Sulfa (Sulfonamide Allergy Anaphylaxis Verified 02/28/22 09:30 Antibiotics) Review of Systems ROS Statement: Those systems with pertinent positive or pertinent negative responses have been documented in the HPI. ROS Other: All systems not noted in ROS Statement are negative. Past Medical History Past Medical History: Sleep Apnea/CPAP/BIPAP Additional Past Medical History / Comment(s): seasonal allergies, aspergers, sleep apnea History of Any Multi-Drug Resistant Organisms: None Reported Past Surgical History: No Surgical Hx Reported Additional Past Surgical History / Comment(s): nasal surgery, wisdom teeth removed, double mastectomy Past Psychological History: ADD/ADHD, Anxiety, Depression Smoking Status: Never smoker Past Alcohol Use History: Rare Past Drug Use History: Marijuana General Exam Limitations: no limitations General appearance: alert, in no apparent distress Head exam: Present: atraumatic, normocephalic, normal inspection Respiratory exam: Present: normal lung sounds bilaterally. Absent: respiratory distress, wheezes, rales, rhonchi, stridor Cardiovascular Exam: Present: regular rate, normal rhythm, normal heart sounds. Absent: systolic murmur, diastolic murmur, rubs, gallop, clicks Psychiatric exam: Present: normal affect, normal mood Course Vital Signs 02/28/22 09:28 Temperature 98.1 F Pulse Rate 60 Respiratory 16 Rate Blood Pressure 108/71 O2 Sat by Pulse 99 Oximetry Medical Decision Making - Medical Decision Making Patient was poked by a vacuum container they have been cleaning solution for unknown amount of time. I did offer HIV Prophylaxis patient declines have blood drawn today and recheck. Disposition Clinical Impression: Needle stick injury Disposition: HOME SELF-CARE Condition: Stable Instructions (If sedation given, give patient instructions): Needle Stick Injuries (ED) Additional Instructions: Please return to the Emergency Department if symptoms worsen or any other concerns. Is patient prescribed a controlled substance at d/c from ED?: No Referrals: Quintin Kahn MD [Primary Care Provider] - 1-2 days Time of Disposition: 10:39
[2022-02-28 12:03] VITALS: BP 110/68; PULSE 62
== END 2022-02-28 11:45 | disposition home or self-care (01) ==
LOC: EC 09:05
DX: S69.90XA Unspecified injury of unspecified wrist, hand and finger(s), initial encounter (principal); W46.1XXA Contact with contaminated hypodermic needle, initial encounter; Y99.0 Civilian activity done for income or pay
CPT/HCPCS: 99282

== ENCOUNTER → 2022-04-23 | Outpatient (CLI) | payer MEDICAID ==
[2022-04-23 23:30] LABS: HCT 47.6 % (39.6-50.0); HGB 15.4 g/dL (13.0-17.0); MCH 28.5 pg (27.0-32.0); MCHC 32.4 g/dL (32.0-37.0); Mean Platelet Volume 9.6 fL (9.5-12.2); NRBC Per 100 WBC 0 /100 WBCS (0.0-0.0); Platelet Count 296 X 10*3/uL (140-440); RBC 5.41 X 10*6/uL (4.40-5.60); RDW 13.9 % (11.5-14.5); WBC 9.53 X 10*3/uL (4.50-10.00)
[2022-04-23 23:54] LABS: ALT 25 U/L (10-49); AST 25 U/L (14-35); African American GFR (CKD) 98.8 (60.0-200.0); Albumin 4.5 g/dL (3.8-4.9); Albumin/Globulin Ratio 2.33 (1.60-3.17); Alkaline Phosphatase 46 U/L (41-126); BUN/Creat Ratio 17.98 Ratio (12.00-20.00); Blood Urea Nitrogen 20.5 mg/dL (9.0-27.0); Calcium 9.8 mg/dL (8.7-10.3); Carbon Dioxide 26.1 mmol/L (20.0-27.5); Chloride 100 mmol/L (96-109); Chol/HDL Ratio 4.56 Ratio; Globulin 1.9 g/dL (1.6-3.3); Glucose 84 mg/dL (70-110); Non-African American GFR(CKD) 85.2 (60.0-200.0); Potassium 4.5 mmol/L (3.5-5.5); Sodium 137 mmol/L (135-145); Total Protein 6.4 g/dL (6.2-8.2)
[2022-04-24 00:03] LABS: Testosterone >1500.00 ng/mL (123.06-813.86)
== END | disposition home or self-care (01) ==
LOC: LABWHC1 15:44
PROVIDERS: ATTEND Internal Medicine
DX: E78.5 Hyperlipidemia, unspecified (principal); E55.9 Vitamin D deficiency, unspecified; F64.0 Transsexualism
CPT/HCPCS: 36415; 80053; 80061; 82306; 84402; 84403; 85027

== ENCOUNTER → 2022-08-16 | Outpatient (CLI) | payer MEDICAID, OTHER ==
[2022-08-16 22:46] LABS: Basophils # (A) 0.05 X 10*3/uL (0.00-0.10); Basophils % (A) 0.7 %; Eosinophils # (A) 0.33 X 10*3/uL (0.04-0.35); Eosinophils % (A) 4.4 %; HCT 45.4 % (39.6-50.0); HGB 14.6 g/dL (13.0-17.0); Immature Grans, Automated 0.3 %; Lymphocytes # (A) 2.77 X 10*3/uL (0.90-5.00); Lymphocytes % (A) 36.7 %; MCH 28.4 pg (27.0-32.0); MCHC 32.2 g/dL (32.0-37.0); MCV 88.3 fL (80.0-97.0); Mean Platelet Volume 9.4 fL (9.5-12.2); Monocytes % (A) 11.9 %; NRBC Per 100 WBC 0 /100 WBCS (0.0-0.0); Neutrophils # (A) 3.47 X 10*3/uL (1.80-7.70); Platelet Count 293 X 10*3/uL (140-440); RBC 5.14 X 10*6/uL (4.40-5.60); RDW 13.2 % (11.5-14.5); WBC 7.54 X 10*3/uL (4.50-10.00)
[2022-08-16 23:21] LABS: Anion Gap 10.7 mmol/L (10.00-18.00); Carbon Dioxide 25.4 mmol/L (20.0-27.5); Potassium 4.1 mmol/L (3.5-5.5)
== END | disposition home or self-care (01) ==
LOC: LABPAT 14:34
PROVIDERS: ATTEND Orthopaedic Surgery Hand Surgery
DX: Z01.812 Encounter for preprocedural laboratory examination (principal); G56.01 Carpal tunnel syndrome, right upper limb
CPT/HCPCS: 36415; 80051; 85025

== ENCOUNTER 2022-08-22 12:10 | Day surgery (SDC) | payer MEDICAID ==
--- NOTE | 2022-08-20 13:35 | P.HPOR ---
History of Present Illness H&P Date: 08/20/22 Chief Complaint: Right carpal tunnel syndrome Subjective: This is a 32 year old male that presents today for initial evaluation regarding a 2 year history of progressively worsening right hand numbness and tingling isolated to the thumb, index and middle finger with associated weakness. 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 He also notes symptoms when he does work at home including sanding and using power tools. He has tried bracing and injections in years past with minimal relief. Physical Examination: RUE: AIN/PIN/Radial/Ulnar/Median motor intact. Radial/Ulnar/Median SILT. 2+/4 Radial/Ulnar pulses palpated. 5/5 APB, 5/5 FDI. Negative Finkelsteins, negative CMC grind, positive Durkan's compression. Imaging: X-Rays of the right hand, 3 view taken office today demonstrate no abnormality. EMG/nerve conduction velocity testing of the right upper extremity demonstrates moderate carpal tunnel syndrome on the right with prolonged distal peak latency (4.0 ms). Mild decreased ulnar motor conduction velocity, 50ms. Impression: 1.) Right carpal tunnel syndrome Plan: Diagnosis and treatment options were discussed with the patient. He has failed conservative treatment for his right carpal tunnel syndrome. Risks and benefits of surgery including bleeding, infection, damage to surrounding tissue, need for further surgery, possible need to convert to open procedure, residual numbness were discussed and the patient wished to go forward with surgery. I anticipate 2 weeks off post operatively. The patient was agreeable with this plan. -Leonardo Avila DO Orthopedic Hand/Upper Extremity Surgeon Past Medical History Past Medical History: Sleep Apnea/CPAP/BIPAP Additional Past Medical History / Comment(s): seasonal allergies, has had wt loss and improved diet. resolved sleep apnea, privately transitioning has a uterus at this time. History of Any Multi-Drug Resistant Organisms: None Reported Past Surgical History: No Surgical Hx Reported Additional Past Surgical History / Comment(s): nasal surgery, wisdom teeth removed, double mastectomy Past Anesthesia/Blood Transfusion Reactions: No Reported Reaction Smoking Status: Never smoker - Past Family History Father Family Medical History: No Reported History Medications and Allergies Home Medications Medication Instructions Recorded Confirmed Type Testosterone Cypionate 0.5 ml IM Q14D 02/07/19 08/17/22 History [Depo-Testosterone] Fluticasone Nasal [place] [Flonase 1 spray EA NOSTRIL DAILY 08/17/22 08/17/22 History Nasal [place]] Allergies Allergy/AdvReac Type Severity Reaction Status Date / Time Penicillins Allergy Anaphylaxis Verified 08/17/22 11:05 Sulfa (Sulfonamide Allergy Anaphylaxis Verified 08/17/22 11:05 Antibiotics) Physical Examination Osteopathic Statement: *. No significant issues noted on an osteopathic structural exam other than those noted in the History and Physical/Consult.
[~2022-08-22 12:10] MED LIST: LACTATED RINGERS 1,000 ML IV SCH; LIDOCAINE 1% (10MG/ML) FOR IV START INTRADERMA PRN; Pre Op ABX Message 1 EACH MISC MISCELLANE ONE
[2022-08-22 12:53] VITALS: RESP 16; TEMP 97
[2022-08-22] MEDS ORDERED: LIDOCAINE 1% INJ 10MG/ML (20 ML MDV) SQ ONE ×2 (12:56→13:28)
[2022-08-22] MEDS ORDERED: BUPIVACAINE (PF) 0.5% 30 ML VIAL SQ ONE ×2 (12:59→13:28)
[2022-08-22] MEDS ORDERED: fentaNYL (PF) 50 MCG/ML 2 ML AMP ONE (13:14)
[2022-08-22] MEDS ORDERED: PROPOFOL 10 MG/ML 20 ML VIAL IV ONE (13:14)
[2022-08-22] MEDS ORDERED: MIDAZOLAM 2 MG/2 ML VIAL ONE (13:14)
[2022-08-22] MEDS ORDERED: LIDOCAINE 2% INJ 20 MG/ML (2 ML VIAL) ONE (13:14)
--- NOTE | 2022-08-22 13:45 | P.OP ---
Date of Procedure: 08/22/22 Preoperative Diagnosis: Right carpal tunnel syndrome Postoperative Diagnosis: Right carpal tunnel syndrome Procedure(s) Performed: Right endoscopic carpal tunnel release Anesthesia: MAC Surgeon: Leonardo Avila Pre Sales Architect #1: Keshawn Juárez Estimated Blood Loss (ml): 0 Pathology: none sent Condition: stable Disposition: PACU Description of Procedure: This is a 32 year old male who presents today for a right endoscopic carpal tunnel release after having failed conservative treatment in the past. Risks and benefits of surgery were discussed with the patient including bleeding, damage to surrounding tissue, infection, need to convert to open procedure, need for further surgery as well as risks of anesthesia including pulmonary embolism and even and the patient wished to proceed with surgical intervention. The patients was seen in the pre-operative area by myself. Consent and H&P were completed and updated. The correct extremity was marked in the pre-operative area by myself and all other questions were answered. Operative Narrative: The patient was brought to the operating room by the department of anesthesia. They remained on the portable stretcher and a rolling hand table was brought to the side of the operative extremity. Pre-operative time out was performed indicating the correct patient, procedure and laterality. All in the room agreed. The patient was then drifted off to sleep by the department of anes thesia. MAC anesthesia was utilized and a 50:50 mixture of 1% Lidocaine and 0.5% bupivacaine was injected into the subcutaneous tissues of the palmar skin, 8ccs total. A nonsterile tourniquet was then applied to the operative extremity and the right upper extremity was then prepped and draped in normal sterile fashion. The operative extremity was the exsanguinated with an esmarch bandage and the tourniquet was inflated to 250mmHg. 15 blade scalpel was utilized to make a transverse incision on the palmar skin just ulnar to the palmaris longus tendon at the level of the distal wrist crease. Ragnell retractor was then placed radially and blunt dissection was performed to reveal the distal forearm fascia. This was lifted with fine Armando pick ups and Littler tenotomy scissors were then used to open the forearm fascia transversely and a double skin hook was then placed. Hamate finder was placed into the carpal tunnel and then sequential sized dilators were inserted followed by the synovial elevator to separate the flexor tenosynovium from the undersurface of the transverse carpal ligament and a washboard texture was felt. The MicroAire endoscopic carpal tunnel release system gun was the then inserted into the carpal tunnel hugging the deep portion of the transverse carpal ligament in line with the base of the ring finger. Transverse fibers of the ligament were directly visualized. Pressure was applied on the palm to reveal the distal extent of the transverse carpal ligament. The blade was then deployed and the distal half of the transverse carpal ligament was released. The scope was then brought distal again and remaining transverse fibers were incised with the blade. The proximal half of the transverse carpal ligament was then divided and again the scope was advanced distal and remaining transverse fibers were incised with the blade. The radial and ulnar leaflets were directly visualized and mobile consistent with complete release. Tenotomy scissors were then util ized to release the remaining distal forearm fascia under direct visualization taking care to preserve the palmar cutaneous branch of the median nerve. Skin closure was performed with interrupted 4-0 Monocryl suture followed by Mastisol and steri strips. Sterile dressing was applied consisting of adaptic, 4x4s, Webril, and an edgardo bandage. Tourniquet was let down and the hand immediately was well perfused. The patient was then woken by the department of anesthesia and transferred to PACU in stable condition. Keshawn LOVE was present for the case in its entirety and assisted in major portions of the case and protection of vital neurovascular structures. Leonardo Avila D.O. Orthopedic Hand/Upper Extremity Surgeon
[2022-08-22 14:06] VITALS: BP 120/72; PULSE 77
== END 2022-08-22 14:23 | disposition home or self-care (01) ==
LOC: OR 12:10
PROVIDERS: ATTEND Orthopaedic Surgery Hand Surgery
DX: G56.01 Carpal tunnel syndrome, right upper limb (principal); J30.2 Other seasonal allergic rhinitis; Z88.0 Allergy status to penicillin; Z88.2 Allergy status to sulfonamides; Z79.899 Other long term (current) drug therapy
CPT/HCPCS: 29848; J2250; J2001 ×2; J3010; J2704

== ENCOUNTER → 2023-03-16 | Outpatient (CLI) | payer MEDICAID ==
[2023-03-16 23:06] LABS: HCT 49.3 % (39.6-50.0); HGB 15.8 d/dL (13.0-17.0); MCH 28.7 pg (27.0-32.0); MCV 89.5 FL (80.0-97.0); Mean Platelet Volume 9.8 FL (9.5-12.2); NRBC Per 100 WBC 0 X 10*3/uL (0.00-0.01); Platelet Count 281 X 10*3/uL (140-440); RBC 5.51 X 10*6/uL (4.40-5.60); RDW 13.1 % (11.5-14.5)
[2023-03-16 23:31] LABS: ALT 33 U/L (10-49); AST 30 U/L (14-35); Albumin 4.7 d/dL (3.8-4.9); Albumin/Globulin Ratio 2.35 Ratio (1.60-3.17); Alkaline Phosphatase 55 U/L (41-126); BUN/Creat Ratio 23.22 Ratio (12.00-20.00); Blood Urea Nitrogen 20.9 mg/dL (9.0-27.0); Calcium 9.6 mg/dL (8.7-10.3); Carbon Dioxide 25.6 mmol/L (21.6-31.8); Chloride 104 mmol/L (96-109); Estradiol <20.0 pg/mL; Glucose 99 mg/dL (70-110); Potassium 4.6 mmol/L (3.5-5.5); Sodium 141 mmol/L (135-145); Total Bilirubin 0.5 mg/dL (0.3-1.2); Total Protein 6.7 d/dL (6.2-8.2)
[2023-03-17 07:47] LABS: Follicle Stimulating Hormone 5.5 mIU/mL; Luteinizing Hormone 4.8 mIU/mL
== END | disposition home or self-care (01) ==
LOC: LABWHC1 10:38
PROVIDERS: ATTEND Internal Medicine
DX: F64.0 Transsexualism (principal)
CPT/HCPCS: 36415; 80053; 82670; 83001; 83002; 84146; 84402; 84403; 85027